=== PATIENT | male | born 1945 | race Caucasian/White ===

== ENCOUNTER 2017-08-16 07:48 | Inpatient (IN) | payer MEDICARE, BC ==
[2017-08-16 08:47] LABS: CHLORIDE,CL 105 mEq/L (98-106); SODIUM,NA 138 mEq/L (136-145)
--- NOTE | 2017-08-16 08:56 | EDM.PDOC ---
ED HPI GENERAL MEDICAL PROBLEM - General Chief Complaint: General Stated Complaint: FEELING FAINT Time Seen by Provider: 08/16/17 08:20 Source of Information: Reports: Patient History Limitations: Reports: No Limitations - History of Present Illness INITIAL COMMENTS - FREE TEXT/NARRATIVE: Patient presents to ER with complaints of chills and 2 near syncopal episodes. States awoke this am and has not felt all that well. Was walking to shower and felt lightheaded. Had to lie on the ground as was worrying about passing out. Happened again after his shower. He has not had a fever that he is aware of. Denies cough. NO N/V/D. No shortness of breath. NO chest pain. No neurological changes. Denies any history of feeling dizzy or lightheaded before this. Has been doing well up until today. Onset: Today, Gradual Duration: Hour(s): Location: Reports: Generalized Quality: Reports: Ache Severity: Mild Improves with: Reports: Rest Associated Symptoms: Reports: Fever/Chills, Syncope, Weakness. Denies: Confusion, Chest Pain, Cough, Diaphoresis, Loss of Appetite, Nausea/Vomiting, Shortness of Breath - Related Data Allergies Allergy/AdvReac Type Severity Reaction Status Date / Time No Known Allergies Allergy Verified 08/16/17 08:07 Home Meds: Home Meds Aspirin [Ecotrin] 81 mg PO DAILY 07/20/13 [History] Cholecalciferol (Vitamin D3) [Vitamin D3] 2,000 unit PO DAILY 07/20/13 [History] Glucosamine [Glucosamine Sulfate] 500 mg PO DAILY 07/20/13 [History] Metoprolol Tartrate [Lopressor] 25 mg PO BID 07/20/13 [History] Simvastatin [Zocor] 40 mg PO BEDTIME 07/20/13 [History] Ubidecarenone [Co Q-10] 50 mg PO DAILY 07/20/13 [History] Vitamin B Complex 1 each PO DAILY 07/20/13 [History] diphenhydrAMINE [Benadryl] 25 mg PO Q6H PRN 07/20/13 [History] amLODIPine Besylate [Amlodipine Besylate] 5 mg PO DAILY 07/07/15 [History] Cyanocobalamin (Vitamin B-12) [Vitamin B-12] 2,000 mcg PO DAILY 08/16/17 [ History] Past Medical History HEENT History: Reports: Hard of Hearing, Impaired Vision 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 Musculoskeletal History: Reports: Neck Pain, Chronic Neurological History: Reports: Concussion - Past Surgical History GI Surgical History: Reports: Appendectomy, Hernia Repair/Other Musculoskeletal Surgical History: Reports: Arthroscopic Procedure Social & Family History - Family History Family Medical History: Noncontributory - Tobacco Use Smoking Status *Q: Former Smoker Used Tobacco, but Quit: Yes Month/Year Tobacco Last Used: 1999 - Caffeine Use Caffeine Use: Reports: Coffee, Energy Drinks, Soda - Alcohol Use Days Per Week of Alcohol Use: 1 Number of Drinks Per Day: 0 Total Drinks Per Week: 0 - Recreational Drug Use Recreational Drug Use: No ED ROS GENERAL - Review of Systems Review Of Systems: See Below Constitutional: Reports: Chills, Malaise, Fatigue. Denies: Fever, Weakness, Decreased Appetite HEENT: Denies: Ear Pain, Rhinitis, Throat Pain Respiratory: Denies: Shortness of Breath, Wheezing, Cough Cardiovascular: Reports: Lightheadedness. Denies: Chest Pain, Edema Endocrine: Reports: Fatigue GI/Abdominal: Denies: Abdominal Pain, Constipation, Diarrhea, Nausea, Vomiting : Reports: No Symptoms Musculoskeletal: Reports: No Symptoms Skin: Reports: No Symptoms Neurological: Reports: Weakness ED EXAM, GENERAL - Physical Exam Exam: See Below Exam Limited By: No Limitations General Appearance: Alert, WD/WN, No Apparent Distress Eye Exam: Bilateral Eye: EOMI, PERRL Ears: Normal External Exam, Normal TMs Nose: Normal Inspection, Normal Mucosa, No Blood Throat/Mouth: Normal Inspection, Normal Oropharynx Head: Normocephalic Neck: Normal Inspection, Supple, Non-Tender Respiratory/Chest: No Respiratory Distress, Crackles (RLL) Cardiovascular: Regular Rate, Rhythm GI/Abdominal: Normal Bowel Sounds, Soft, Non-Tender Extremities: Normal Inspection, No Pedal Edema Neurological: Alert, Oriented Skin Exam: Warm, Dry Course - Vital Signs Last Recorded V/S: Last Vital Signs Temp 102.3 F H 08/16/17 13:37 Pulse 86 08/16/17 12:00 Resp 20 08/16/17 12:00 BP 112/70 08/16/17 12:00 Pulse Ox 99 08/16/17 12:00 - Orders/Labs/Meds Orders: Active Orders 24 hr Category Date Time Status Chest 2V [CR] Stat Exams 08/16/17 08:35 Taken Lactated Ringers [Ringers, Lactated] 1,000 ml Med 08/16/17 09:00 Active IV ASDIRECTED Medication Orders Acetaminophen (Tylenol) 650 mg PO Q4H PRN PRN Reason: Pain (Mild 1-3)/fever Last Admin: 08/16/17 11:57 Dose: 650 mg Amlodipine Besylate (Norvasc) 5 mg PO DAILY [facility] Aspirin (Halfprin) 81 mg PO DAILY [facility] Cholecalciferol (Vitamin D3) 2,000 units PO DAILY [facility] Cyanocobalamin (Vitamin B12) 2,000 mcg PO DAILY [facility] Enoxaparin Sodium (Lovenox) 40 mg SUBCUT Q24H [facility] Last Admin: 08/16/17 10:42 Dose: 40 mg Lactated Ringer's (Ringers, Lactated) 1,000 mls @ 250 mls/hr IV ASDIRECTED [facility] Last Admin: 08/16/17 09:08 Dose: 250 mls/hr Levofloxacin/Dextrose 500 mg/ (Premix) 100 mls @ 100 mls/hr IV Q24H [facility] Last Admin: 08/16/17 10:41 Dose: 100 mls/hr Ibuprofen (Motrin) 400 mg PO Q6H PRN PRN Reason: Fever Last Admin: 08/16/17 12:37 Dose: 400 mg Metoprolol Tartrate (Lopressor) 25 mg PO BID [facility] Ondansetron HCl (Zofran Odt) 4 mg PO Q4H PRN PRN Reason: nausea, able to take PO Oseltamivir Phosphate (Tamiflu) 30 mg PO BID [facility] Simvastatin (Zocor) 40 mg PO BEDTIME [facility] Sodium Chloride (Saline Flush) 10 ml FLUSH ASDIRECTED PRN PRN Reason: Keep Vein Open Sodium Chloride ([place] Nasal [place]) 0 ml [place] QID PRN PRN Reason: Nasal Dryness Vitamin B Complex (Vitamin B Complex) 1 each PO DAILY [facility] Labs: Laboratory Tests 08/16/17 08/16/17 08/16/17 Range/Units 08:00 08:13 08:15 WBC 14.1 H (5.0-10.0) 10^3/uL RBC 5.06 (4.50-6.00) 10^6/uL Hgb 15.1 (14.0-18.0) g/dL Hct 45.4 (40.0-54.0) % MCV 89.7 (82.0-94.0) fL MCH 29.8 (27.0-32.0) pg MCHC 33.3 (33.0-38.0) g/dL RDW Coeff of Yaw 12.2 (11.0-15.0) % Plt Count 188 (150-400) 10^3/uL Neut % (Auto) 83.5 (35-85) % Lymph % (Auto) 5.3 L (10-55) % [place] % (Auto) 10.8 (0-16) % Eos % (Auto) 0.2 (0-5) % Baso % (Auto) 0.2 (0-3) % Neut # (Auto) 11.76 H (1.80-7.00) 10^3/uL Lymph # (Auto) 0.74 L (1.00-4.80) 10^3/uL [place] # (Auto) 1.52 H (0.00-0.80) 10^3/uL Eos # (Auto) 0.03 (0.00-0.45) 10^3/uL Baso # (Auto) 0.03 10^3/uL D-Dimer, Quantitative 0.98 H (0.00-0.50) Sodium (136-145) mEq/L Potassium (3.5-5.0) mEq/L Chloride (98-106) mEq/L Carbon Dioxide (21-32) mmol/L BUN (7-18) mg/dL Creatinine (0.7-1.3) mg/dL Est Cr Clr Drug Dosing mL/min Estimated GFR (MDRD) (>=60) mL/min Glucose (75-99) mg/dL Calcium (8.4-10.1) mg/dL Total Bilirubin (0.0-1.0) mg/dL AST (15-37) U/L ALT (12-78) U/L Alkaline Phosphatase (46-116) U/L Troponin I (0.00-0.06) ng/mL C-Reactive Protein (0.2-0.8) mg/dL Total Protein (6.4-8.2) g/dL Albumin (3.4-5.0) g/dL Urine Color Dark yellow (YELLOW) Urine Appearance Slightly cloudy (CLEAR) Urine pH 5.0 (4.5-8.0) Ur Specific [place] >= 1.030 H (1.003-1.020) Urine Protein 30 H (NEGATIVE) mg/dL Urine Glucose (UA) Negative (NEGATIVE) mg/dL Urine Ketones Trace H (NEGATIVE) mg/dL Urine Occult Blood Negative (NEGATIVE) Urine Nitrite Negative (NEGATIVE) Urine Bilirubin Negative (NEGATIVE) Urine Urobilinogen 0.2 (0.2-1.0) EU/dL Ur Leukocyte Esterase Negative (NEGATIVE) Urine RBC Not seen (0-5) /HPF Urine WBC 0-5 (0-5) /HPF Ur Squamous Epith Cells Occasional H (NOT SEEN) /HPF Amorphous Sediment Occasional H (NOT SEEN) /HPF Urine Bacteria Occasional H (NOT SEEN) /HPF Urine Mucus Many H (NOT SEEN) /HPF 08/16/17 Range/Units 08:15 WBC (5.0-10.0) 10^3/uL RBC (4.50-6.00) 10^6/uL Hgb (14.0-18.0) g/dL Hct (40.0-54.0) % MCV (82.0-94.0) fL MCH (27.0-32.0) pg MCHC (33.0-38.0) g/dL RDW Coeff of Yaw (11.0-15.0) % Plt Count (150-400) 10^3/uL Neut % (Auto) (35-85) % Lymph % (Auto) (10-55) % [place] % (Auto) (0-16) % Eos % (Auto) (0-5) % Baso % (Auto) (0-3) % Neut # (Auto) (1.80-7.00) 10^3/uL Lymph # (Auto) (1.00-4.80) 10^3/uL [place] # (Auto) (0.00-0.80) 10^3/uL Eos # (Auto) (0.00-0.45) 10^3/uL Baso # (Auto) 10^3/uL D-Dimer, Quantitative (0.00-0.50) Sodium 138 (136-145) mEq/L Potassium 4.5 (3.5-5.0) mEq/L Chloride 105 (98-106) mEq/L Carbon Dioxide 26 (21-32) mmol/L BUN 14 (7-18) mg/dL Creatinine 1.3 (0.7-1.3) mg/dL Est Cr Clr Drug Dosing 53.81 mL/min Estimated GFR (MDRD) 54 L (>=60) mL/min Glucose 142 H D (75-99) mg/dL Calcium 8.5 (8.4-10.1) mg/dL Total Bilirubin 0.7 (0.0-1.0) mg/dL AST 18 (15-37) U/L ALT 24 (12-78) U/L Alkaline Phosphatase 83 (46-116) U/L Troponin I < 0.017 (0.00-0.06) ng/mL C-Reactive Protein 4.6 H (0.2-0.8) mg/dL Total Protein 6.9 (6.4-8.2) g/dL Albumin 3.7 (3.4-5.0) g/dL Urine Color (YELLOW) Urine Appearance (CLEAR) Urine pH (4.5-8.0) Ur Specific [place] (1.003-1.020) Urine Protein (NEGATIVE) mg/dL Urine Glucose (UA) (NEGATIVE) mg/dL Urine Ketones (NEGATIVE) mg/dL Urine Occult Blood (NEGATIVE) Urine Nitrite (NEGATIVE) Urine Bilirubin (NEGATIVE) Urine Urobilinogen (0.2-1.0) EU/dL Ur Leukocyte Esterase (NEGATIVE) Urine RBC (0-5) /HPF Urine WBC (0-5) /HPF Ur Squamous Epith Cells (NOT SEEN) /HPF Amorphous Sediment (NOT SEEN) /HPF Urine Bacteria (NOT SEEN) /HPF Urine Mucus (NOT SEEN) /HPF Meds: Medications Generic Name Dose Route Start Last Admin Trade Name Freq PRN Reason Stop Dose Admin Acetaminophen 650 mg 08/16/17 10:00 08/16/17 11:57 Tylenol PO 650 mg Q4H PRN Administration Pain (Mild 1-3)/fever Amlodipine Besylate 5 mg 08/17/17 08:00 Norvasc PO DAILY [facility] Aspirin 81 mg 08/17/17 08:00 Halfprin PO DAILY [facility] Cholecalciferol 2,000 units 08/17/17 08:00 Vitamin D3 PO DAILY [facility] Cyanocobalamin 2,000 mcg 08/17/17 08:00 Vitamin B12 PO DAILY [facility] Enoxaparin Sodium 40 mg 08/16/17 10:00 08/16/17 10:42 Lovenox SUBCUT 40 mg Q24H [facility] Administration Lactated Ringer's 1,000 mls @ 250 mls/hr 08/16/17 09:00 08/16/17 09:08 Ringers, Lactated IV 250 mls/hr ASDIRECTED [facility] Administration Levofloxacin/Dextrose 500 mg/ 100 mls @ 100 mls/hr 08/16/17 10:00 08/16/17 10 :41 Premix IV 100 mls/hr Q24H [facility] Administration Ibuprofen 400 mg 08/16/17 12:02 08/16/17 12:37 Motrin PO 400 mg Q6H PRN Administration Fever Metoprolol Tartrate 25 mg 08/16/17 20:00 Lopressor PO BID [facility] Ondansetron HCl 4 mg 08/16/17 10:00 Zofran Odt PO Q4H PRN nausea, able to take PO Oseltamivir Phosphate 30 mg 08/16/17 14:45 Tamiflu PO BID [facility] Simvastatin 40 mg 08/16/17 20:00 Zocor PO BEDTIME [facility] Sodium Chloride 10 ml 08/16/17 10:00 Saline Flush FLUSH ASDIRECTED PRN Keep Vein Open Sodium Chloride 0 ml 08/16/17 14:43 [place] Nasal [place] QID PRN Nasal Dryness Vitamin B Complex 1 each 08/17/17 08:00 Vitamin B Complex PO DAILY [facility] Discontinued Medications Generic Name Dose Route Start Last Admin Trade Name Freq PRN Reason Stop Dose Admin Non-Formulary Medication 50 mg 08/17/17 08:00 Ubidecarenone [Co Q-10] PO DAILY [facility] Oseltamivir Phosphate 75 mg 08/16/17 14:15 08/16/17 14:49 Tamiflu PO Not Given BID [facility] - Re-Assessments/Exams Free Text/Narrative Re-Assessment/Exam: 08/16/17 Labs noted to have increased WBC, CRP and creatinine. Specific gravity of urine greater than 1.030. Chest xray shows questionable infiltrate in RLL. Will admit acute inpatient to Dr. Drake. Departure - Departure Time of Disposition: 09:20 Disposition: Admitted As Inpatient 67 Condition: Fair Clinical Impression: Pneumonia - Discharge Information - Problem List & Annotations (1) Pneumonia SNOMED Code(s): 291173447 Code(s): J18.9 - PNEUMONIA, UNSPECIFIED ORGANISM Status: Acute Priority: High Current Visit: No - Problem List Review Problem List Initiated/Reviewed/Updated: Yes - My Orders Last 24 Hours: My Active Orders 08/16/17 08:35 Chest 2V [CR] Stat 08/16/17 09:00 Lactated Ringers [Ringers, Lactated] 1,000 ml IV ASDIRECTED - Assessment/Plan Admission H&P: Please use this note as an admission H&P Last 24 Hours: My Active Orders 08/16/17 08:35 Chest 2V [CR] Stat 08/16/17 09:00 Lactated Ringers [Ringers, Lactated] 1,000 ml IV ASDIRECTED Assessment:: RLL pneumonia Plan: Admit to Dr. Drake. IV Levaquin. Sputum culture if able. IV fluids. Dr. Drake aware of admission and agrees with plan.
[2017-08-16] MEDS ORDERED: Lactated Ringers 1,000 ML IV SCH (09:00)
[2017-08-16] MEDS ORDERED: Ondansetron 4 MG Tab.DIS PO PRN (10:00)
[2017-08-16] MEDS ORDERED: Sodium Chloride 0.9% 10 ML Syringe FLUSH PRN (10:00)
[2017-08-16] MEDS: Levofloxacin/Dextrose 5%-Water 500 MG in Premix Bag 1 BAG IV SCH (10:41)
[2017-08-16] MEDS: Enoxaparin 40 MG/0.4 ML Syringe SUBCUT SCH (10:42)
[2017-08-16] MEDS: Acetaminophen 325 MG Tab PO PRN (11:57)
[2017-08-16] MEDS: Ibuprofen 200 MG Tab PO PRN ×2 (12:37→21:20)
[2017-08-16] MEDS ORDERED: Oseltamivir 75 MG Cap PO SCH (14:15)
[2017-08-16] MEDS ORDERED: Sodium Chloride 0.65% Nasal Spray 45 ML Bottle NAS PRN (14:43)
[2017-08-16] MEDS: Oseltamivir 6 MG/ML Susp 60 ML Bot PO SCH ×2 (15:52→19:32)
[2017-08-16] MEDS: Sodium Chloride 0.9% 1,000 ML IV SCH (16:52)
[2017-08-16] MEDS: Simvastatin 40 MG Tab PO SCH (19:32)
[2017-08-16] MEDS: Metoprolol Tartrate 25 MG Tab PO SCH (19:32)
[2017-08-17] MEDS: Acetaminophen 325 MG Tab PO PRN ×3 (00:22→13:15)
[2017-08-17] MEDS: Sodium Chloride 0.9% 1,000 ML IV SCH ×3 (02:40→23:10)
[2017-08-17] MEDS ORDERED: Non-Formulary Medication 1 Each (Ubidecarenone [Co Q-10] 50 MG) PO SCH (08:00)
[2017-08-17] MEDS: Vitamin B Complex Cap PO SCH (09:08)
[2017-08-17] MEDS: Aspirin 81 MG Tab.EC PO SCH (09:08)
[2017-08-17] MEDS: Cholecalciferol (Vitamin D3) 1,000 Unit Tab PO SCH (09:09)
[2017-08-17] MEDS: Metoprolol Tartrate 25 MG Tab PO SCH ×2 (09:11→20:11)
[2017-08-17] MEDS: Cyanocobalamin (Vitamin B12) 1,000 MCG Tab PO SCH (09:11)
[2017-08-17] MEDS: amLODIPine 10 MG Tab PO SCH (09:12)
[2017-08-17] MEDS: methylPREDNISolone Sodium Succinate 125 MG/2 ML SDV IVPUSH SCH ×2 (09:13→20:11)
[2017-08-17] MEDS: Oseltamivir 6 MG/ML Susp 60 ML Bot PO SCH ×2 (09:14→20:12)
[2017-08-17] MEDS: Enoxaparin 40 MG/0.4 ML Syringe SUBCUT SCH (09:26)
[2017-08-17] MEDS: Levofloxacin/Dextrose 5%-Water 500 MG in Premix Bag 1 BAG IV SCH (09:27)
--- NOTE | 2017-08-17 11:10 | PN ---
DATE: 08/17/2017 S: Farrukh Toribio came in with fever, chills, and dizziness. He was tested positive for influenza. O: NECK: Supple. CHEST: Occasional wheeze. CARDIAC: Sounds are good. ABDOMEN: Soft. ASSESSMENT: INFLUENZA BRONCHIOLITIS. P: I will give him some IV steroids. EUSEBIO/KASH /[id number]
[2017-08-17] MEDS: Ibuprofen 200 MG Tab PO PRN (11:58)
[2017-08-17] MEDS: Simvastatin 40 MG Tab PO SCH (20:12)
[2017-08-18] MEDS: Aspirin 81 MG Tab.EC PO SCH (07:42)
[2017-08-18] MEDS: amLODIPine 10 MG Tab PO SCH (07:43)
[2017-08-18] MEDS: Metoprolol Tartrate 25 MG Tab PO SCH (07:43)
[2017-08-18] MEDS: Vitamin B Complex Cap PO SCH (07:44)
[2017-08-18] MEDS: methylPREDNISolone Sodium Succinate 125 MG/2 ML SDV IVPUSH SCH (07:44)
[2017-08-18] MEDS: Cholecalciferol (Vitamin D3) 1,000 Unit Tab PO SCH (07:45)
[2017-08-18] MEDS: Cyanocobalamin (Vitamin B12) 1,000 MCG Tab PO SCH (07:45)
[2017-08-18] MEDS: Oseltamivir 6 MG/ML Susp 60 ML Bot PO SCH (07:47)
[2017-08-18 07:48] VITALS: BP 121/81
[2017-08-18 08:12] LABS: CHLORIDE,CL 107 mEq/L (98-106); SODIUM,NA 138 mEq/L (136-145)
--- NOTE | 2017-08-18 08:36 | PCM.DCSUM1 ---
Discharge Summary - Hospital Course HPI Initial Comments: This patient is a 72 year old male that was admitted to the hospital for influenza B. Patient also had bronchitis. Patient reports that today he is feeling great and is ready to go home. THe patient today lung sounds are clear. Labs WBC is 11,000. Patient clinically looks well. No fever. Patient denies euceda, dizziness, n, v, d, f, neck pain, neck stiffness, chest pain, shortness of breath, abd pain. Patient is alert and oriented. Conversing in full and complete sentences without difficulty. I will discharge the patient home. Stable. - Discharge Data Discharge Date: 08/18/17 Discharge Disposition: Home, Self-Care 01 Condition: Good - Patient Instructions Diet: Usual Diet as Tolerated Activity: As Tolerated Driving: May Drive Today Showering/Bathing: May Shower Notify Provider of: Fever, Increased Pain, Nausea and/or Vomiting - Discharge Plan Home Medications: Home Meds Aspirin [Ecotrin] 81 mg PO DAILY 07/20/13 [History] Cholecalciferol (Vitamin D3) [Vitamin D3] 2,000 unit PO DAILY 07/20/13 [History] Glucosamine [Glucosamine Sulfate] 500 mg PO DAILY 07/20/13 [History] Metoprolol Tartrate [Lopressor] 25 mg PO BID 07/20/13 [History] Simvastatin [Zocor] 40 mg PO BEDTIME 07/20/13 [History] Ubidecarenone [Co Q-10] 50 mg PO DAILY 07/20/13 [History] Vitamin B Complex 1 each PO DAILY 07/20/13 [History] diphenhydrAMINE [Benadryl] 25 mg PO Q6H PRN 07/20/13 [History] amLODIPine Besylate [Amlodipine Besylate] 5 mg PO DAILY 07/07/15 [History] Cyanocobalamin (Vitamin B-12) [Vitamin B-12] 2,000 mcg PO DAILY 08/16/17 [ History] Forms: ED Department Discharge - Discharge Summary/Plan Comment DC Time >30 min.: No Discharge Summary/Plan Comment: Followup with your primary care provider this week Return to the ER for worsening of condition or any emergent concerns Levaquin 500mg 1 pill once a day for 5 days #5 no refill - General Info Date of Service: 08/18/17 Functional Status: Reports: Pain Controlled, Tolerating Diet, Ambulating, Urinating - Review of Systems General: Reports: No Symptoms. Denies: Fever, Weakness, Fatigue HEENT: Reports: No Symptoms. Denies: Headaches Pulmonary: Reports: No Symptoms Cardiovascular: Reports: No Symptoms. Denies: Chest Pain, Palpitations, Dyspnea on Exertion, Orthopnea, Edema, Lightheadedness Gastrointestinal: Reports: No Symptoms Genitourinary: Reports: No Symptoms Musculoskeletal: Reports: No Symptoms Skin: Reports: No Symptoms Neurological: Reports: No Symptoms Psychiatric: Reports: No Symptoms - Patient Data Vitals - Most Recent: Last Vital Signs Temp 98.1 F 08/18/17 08:00 Pulse 83 08/18/17 08:00 Resp 20 08/18/17 08:00 BP 121/81 08/18/17 08:00 Pulse Ox 96 08/18/17 08:00 Weight - Most Recent: 185 lb I&O - Last 24 hours: Intake & Output 08/17/17 08/18/17 08/18/17 22:59 06:59 14:59 Intake Total 992 Balance 992 Lab Results - Last 24 hrs: Laboratory Results - last 24 hr 08/18/17 08/18/17 08/18/17 Range/Units 05:00 08:02 08:05 WBC 11.2 H (5.0-10.0) 10^3/uL RBC 5.02 (4.50-6.00) 10^6/uL Hgb 15.1 (14.0-18.0) g/dL Hct 44.0 (40.0-54.0) % MCV 87.6 (82.0-94.0) fL MCH 30.1 (27.0-32.0) pg MCHC 34.3 (33.0-38.0) g/dL RDW Coeff of Yaw 12.2 (11.0-15.0) % Plt Count 161 (150-400) 10^3/uL Neut % (Auto) 90.6 H (35-85) % Lymph % (Auto) 5.3 L (10-55) % [place] % (Auto) 4.1 (0-16) % Eos % (Auto) 0 (0-5) % Baso % (Auto) 0 (0-3) % Neut # (Auto) 10.18 H (1.80-7.00) 10^3/uL Lymph # (Auto) 0.60 L (1.00-4.80) 10^3/uL [place] # (Auto) 0.46 (0.00-0.80) 10^3/uL Eos # (Auto) 0.00 (0.00-0.45) 10^3/uL Baso # (Auto) 0.00 10^3/uL Sodium 138 (136-145) mEq/L Potassium 3.8 (3.5-5.0) mEq/L Chloride 107 H (98-106) mEq/L Carbon Dioxide 22 (21-32) mmol/L BUN 10 (7-18) mg/dL Creatinine 0.9 (0.7-1.3) mg/dL Est Cr Clr Drug Dosing 77.73 mL/min Estimated GFR (MDRD) > 60 (>=60) mL/min Glucose 140 H (75-99) mg/dL Calcium 8.4 (8.4-10.1) mg/dL C-Reactive Protein 14.1 H (0.2-0.8) mg/dL KOBE Results - Last 24 hrs: Microbiology 08/16/17 12:40 Aerobic Blood Culture - Preliminary Blood - Venous NO GROWTH AFTER 1 DAY Anaerobic Blood Culture - Preliminary NO GROWTH AFTER 1 DAY 08/16/17 12:55 Aerobic Blood Culture - Preliminary Blood - Venous - Lab Draw NO GROWTH AFTER 1 DAY Anaerobic Blood Culture - Preliminary NO GROWTH AFTER 1 DAY Med Orders - Current: Current Medications Acetaminophen (Tylenol) 650 mg PO Q4H PRN PRN Reason: Pain (Mild 1-3)/fever Last Admin: 08/17/17 13:15 Dose: 650 mg Amlodipine Besylate (Norvasc) 5 mg PO DAILY [facility] Last Admin: 08/18/17 07:43 Dose: 5 mg Aspirin (Halfprin) 81 mg PO DAILY [facility] Last Admin: 08/18/17 07:42 Dose: 81 mg Cholecalciferol (Vitamin D3) 2,000 units PO DAILY [facility] Last Admin: 08/18/17 07:45 Dose: 2,000 units Cyanocobalamin (Vitamin B12) 2,000 mcg PO DAILY [facility] Last Admin: 08/18/17 07:45 Dose: 2,000 mcg Enoxaparin Sodium (Lovenox) 40 mg SUBCUT Q24H [facility] Last Admin: 08/17/17 09:26 Dose: 40 mg Levofloxacin/Dextrose 500 mg/ (Premix) 100 mls @ 100 mls/hr IV Q24H [facility] Last Admin: 08/17/17 09:27 Dose: 100 mls/hr Sodium Chloride (Normal Saline) 1,000 mls @ 100 mls/hr IV ASDIRECTED [facility] Last Admin: 08/17/17 23:10 Dose: 100 mls/hr Ibuprofen (Motrin) 400 mg PO Q6H PRN PRN Reason: Fever Last Admin: 08/17/17 11:58 Dose: 400 mg Methylprednisolone Sodium Succinate (Solu-Medrol) 62.5 mg IVPUSH Q12H [facility] Last Admin: 08/18/17 07:44 Dose: 62.5 mg Metoprolol Tartrate (Lopressor) 25 mg PO BID [facility] Last Admin: 08/18/17 07:43 Dose: 25 mg Ondansetron HCl (Zofran Odt) 4 mg PO Q4H PRN PRN Reason: nausea, able to take PO Oseltamivir Phosphate (Tamiflu) 30 mg PO BID [facility] Last Admin: 08/18/17 07:47 Dose: 5 ml Simvastatin (Zocor) 40 mg PO BEDTIME [facility] Last Admin: 08/17/17 20:12 Dose: 40 mg Sodium Chloride (Saline Flush) 10 ml FLUSH ASDIRECTED PRN PRN Reason: Keep Vein Open Sodium Chloride ([place] Nasal [place]) 0 ml [place] QID PRN PRN Reason: Nasal Dryness Last Admin: 08/16/17 15:52 Dose: 10 ml Vitamin B Complex (Vitamin B Complex) 1 each PO DAILY [facility] Last Admin: 08/18/17 07:44 Dose: 1 each Discontinued Medications Lactated Ringer's (Ringers, Lactated) 1,000 mls @ 250 mls/hr IV ASDIRECTED [facility] Last Admin: 08/16/17 09:08 Dose: 250 mls/hr Non-Formulary Medication (Ubidecarenone [Co Q-10]) 50 mg PO DAILY [facility] Oseltamivir Phosphate (Tamiflu) 75 mg PO BID [facility] Last Admin: 08/16/17 14:49 Dose: Not Given - Exam General: Reports: Alert, Oriented, Cooperative, No Acute Distress Neck: Reports: Supple Lungs: Reports: Clear to Auscultation, Normal Respiratory Effort. Denies: Decreased Breath Sounds, Crackles, Rales, Rhonchi, Rub, Stridor, Wheezing Cardiovascular: Reports: Regular Rate, Regular Rhythm GI/Abdominal Exam: Normal Bowel Sounds, Soft, Non-Tender Back Exam: Reports: Normal Inspection, Full Range of Motion Extremities: Normal Inspection, Normal Range of Motion, Non-Tender, No Pedal Edema, Normal Capillary Refill Skin: Reports: Warm, Dry, Intact, Ecchymosis Neurological: Reports: No New Focal Deficit Psy/Mental Status: Reports: Alert, Normal Affect, Normal Mood
== END 2017-08-18 10:25 | disposition home or self-care (01) | DRG 194 ==
LOC: CC.ED 07:48 → CC.MS 09:22 → UNDOADMIN 09:50
PROVIDERS: ADMIT Physician Assistant Medical; ATTEND General Practice
DX: J18.9 Pneumonia, unspecified organism (principal); J10.1 Influenza due to other identified influenza virus with other respiratory manifestations; J21.9 Acute bronchiolitis, unspecified; H54.7 Unspecified visual loss; H91.90 Unspecified hearing loss, unspecified ear; G89.29 Other chronic pain; M54.2 Cervicalgia; Z79.82 Long term (current) use of aspirin; R55 Syncope and collapse; R42 Dizziness and giddiness; R68.83 Chills (without fever); R53.81 Other malaise; R53.83 Other fatigue; R53.1 Weakness; Z87.891 Personal history of nicotine dependence; Z79.899 Other long term (current) drug therapy
CPT/HCPCS: 36415; 71046; 80048; 80053; 81001; 84484; 85025; 85379; 86140; 87040; 87804; 93005; 99284; A9270-GY; J1650; J1956; J2930; J7030; J7120

== ENCOUNTER 2020-01-26 10:36 | Emergency (ER) | payer MEDICARE, BC ==
[2020-01-26 10:52] VITALS: BP 137/89; PULSE 92
--- NOTE | 2020-01-26 11:04 | EDM.PDOC ---
ED HPI GENERAL MEDICAL PROBLEM - General Chief Complaint: General Stated Complaint: BODY ACHES Time Seen by Provider: 01/26/20 10:45 Source of Information: Reports: Patient History Limitations: Reports: No Limitations - History of Present Illness INITIAL COMMENTS - FREE TEXT/NARRATIVE: This patient is a 74 year old male that presents to the ER. Patient reports that about 1 week ago he started with general body aches and generalized fatigue. 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 Patient denies any other symptoms. Onset Date: 01/19/20 Duration: Day(s): (7) Quality: Reports: Ache Severity: Mild Improves with: Reports: None Worsens with: Reports: None Associated Symptoms: Reports: No Other Symptoms. Denies: Confusion, Chest Pain, Cough, cough w sputum, Diaphoresis, Fever/Chills, Headaches, Loss of Appetite, Malaise, Nausea/Vomiting, Rash, Seizure, Shortness of Breath, Syncope, Weakness all over Pain Score (Numeric/FACES): 5 - Related Data Allergies Allergy/AdvReac Type Severity Reaction Status Date / Time No Known Allergies Allergy Verified 09/07/17 13:38 Home Meds: Home Meds Aspirin [Ecotrin EC] 81 mg PO DAILY 07/20/13 [History] Cholecalciferol (Vitamin D3) [Vitamin D3] 2,000 unit PO DAILY 07/20/13 [History] Glucosamine [Glucosamine Sulfate] 500 mg PO DAILY 07/20/13 [History] Metoprolol Tartrate [Lopressor] 25 mg PO BID 07/20/13 [History] Simvastatin [Zocor] 40 mg PO BEDTIME 07/20/13 [History] Ubidecarenone [Co Q-10] 50 mg PO DAILY 07/20/13 [History] Vitamin B Complex 1 each PO DAILY 07/20/13 [History] diphenhydrAMINE [Benadryl] 25 mg PO Q6H PRN 07/20/13 [History] amLODIPine Besylate [Amlodipine Besylate] 5 mg PO DAILY 07/07/15 [History] Cyanocobalamin (Vitamin B-12) [Vitamin B-12] 2,000 mcg PO DAILY 08/16/17 [History] Ascorbic Acid [Vitamin C] 1,000 mg PO DAILY 09/07/17 [History] Multivitamin [Daily Larry] 1 ea PO DAILY 09/07/17 [History] Past Medical History HEENT History: Reports: Hard of Hearing, Impaired Vision 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 Denies: Fever, Chills, Malaise, Weakness, Night Sweats, Diaphoresis, Decreased Appetite HEENT: Reports: No Symptoms Respiratory: Reports: No Symptoms. Denies: Shortness of Breath, Wheezing, Pleuritic Chest Pain, Cough, Sputum Cardiovascular: Reports: No Symptoms Endocrine: Reports: No Symptoms GI/Abdominal: Reports: No Symptoms : Reports: No Symptoms Musculoskeletal: Reports: Other (body aches) Skin: Reports: No Symptoms Neurological: Reports: No Symptoms Psychiatric: Reports: No Symptoms Hematologic/Lymphatic: Reports: No Symptoms Immunologic: Reports: No Symptoms ED EXAM, GENERAL - Physical Exam Exam: See Below Exam Limited By: No Limitations General Appearance: Alert, WD/WN, No Apparent Distress Eye Exam: Bilateral Eye: Normal Inspection, PERRL Ears: Normal External Exam, Normal Canal, Hearing Grossly Normal, Normal TMs Ear Exam: Bilateral Ear: Auricle Normal, Canal Normal, TM normal Head: Atraumatic, Normocephalic Neck: Normal Inspection, Supple, Non-Tender, Full Range of Motion Respiratory/Chest: No Respiratory Distress, Lungs Clear, Normal Breath Sounds, No Accessory Muscle Use Cardiovascular: Normal Peripheral Pulses, Regular Rate, Rhythm, No Edema, No Gallop, No JVD, No Murmur, No Rub Peripheral Pulses: 2+: Radial (L), Radial (R), Posterior Tibial (L), Posterior Tibial (R) GI/Abdominal: Soft, Non-Tender Back Exam: Normal Inspection, Full Range of Motion Extremities: Normal Inspection, Normal Range of Motion, Non-Tender, No Pedal Edema, Normal Capillary Refill Neurological: Alert, Oriented Psychiatric: Normal Affect, Normal Mood Skin Exam: Warm, Dry, Intact, Normal Color, No Rash Lymphatic: No Adenopathy Course - Vital Signs Last Recorded V/S: Last Vital Signs Temp 98.3 F 01/26/20 10:49 Pulse 92 01/26/20 10:49 Resp 16 01/26/20 10:49 BP 137/89 01/26/20 10:49 Pulse Ox 95 01/26/20 10:49 Departure - Departure Time of Disposition: 11:02 Disposition: Home, Self-Care 01 Condition: Fair Clinical Impression: COVID-19 - Discharge Information *PRESCRIPTION DRUG MONITORING PROGRAM REVIEWED*: Not Applicable *COPY OF PRESCRIPTION DRUG MONITORING REPORT IN PATIENT JAVAD: Not Applicable Instructions: COVID-19 Frequently Asked Questions, COVID-19: How to Protect Yourself and Others - CDC, Prevent the Spread of COVID-19 if You Are Sick - CDC Forms: ED Department Discharge Additional Instructions: Followup with primary care provider as needed or worsening Return to the ER for worsening of condition or any emergent concerns such as shortness of breath, struggling to breath, or other concerns Increase fluids Go home and rest Quarantine for 14 days at home: Alert anyone you have been around and your employer Wear a mask Tylenol or Motrin for fever Sepsis Event Note (ED) - Evaluation Sepsis Screening Result: No Definite Risk - Focused Exam Vital Signs: Vital Signs Temp Pulse Resp BP Pulse Ox 01/26/20 10:49 98.3 F 92 16 137/89 95 - Assessment/Plan Plan: PLEASE SEE RN NOTE FOR PFS
== END 2020-01-26 11:30 | disposition home or self-care (01) ==
LOC: CC.ED 10:36
DX: U07.1 COVID-19 (principal); Z79.82 Long term (current) use of aspirin; Z79.899 Other long term (current) drug therapy
CPT/HCPCS: 99283; 99284; U0002